=== PATIENT | male | born 1955 | race Caucasian/White ===

== ENCOUNTER → 2016-09-09 | Outpatient (CLI) | payer MEDICARE, OTHER ==
[~2016-09-09] MED LIST: ALLER-TEC10 MG PO; ASPIR 8181 MG PO; BENADRYL 25MG C25 MG PO; BRILINTA 90 MG90 MG PO; FISH OIL 1,0001 EAC3 PO; FLOVENT DISKUS50 MCG INH; IMDUR ER TAB 3030 MG PO; LOPRESSOR 50 MG50 MG PO; METFORMIN HCL500 MG PO; METHOCARBAMOL500 MG PO; NAPROSYN EC 50500 MG PO; NITROSTAT 0.40.4 MG SL; PLAVIX 75 MG TA75 MG PO; PROTONIX40 MG PO; PROVENTIL HFA 61 INH INH; SINGULAIR10 MG PO; ZESTRIL 40 MG T40 MG PO; ZOCOR20 MG PO
== END ==
LOC: HEART 5 09-02 08:45
DX: I25.10 Atherosclerotic heart disease of native coronary artery without angina pectoris (principal); I20.9 Angina pectoris, unspecified; E78.5 Hyperlipidemia, unspecified; I10 Essential (primary) hypertension
CPT/HCPCS: 78452; 93306; A9502

== ENCOUNTER 2016-10-14 07:11 | Inpatient (IN) | payer MEDICARE, OTHER ==
[~2016-10-14] VITALS: Ht 172.7 cm; Wt 108.5 kg
[2016-10-14 07:48] LABS: HEMOGLOBIN 13.6 gm/dl (14.0-17.5); RED BLOOD COUNT 4.59 M/UL (4.20-5.50); WHITE BLOOD COUNT 9.5 K/UL (4.5-11.0)
[2016-10-14 08:01] LABS: BUN/CREATININE RATIO 27 (0-10)
[2016-10-14] MEDS ORDERED: ALLER-TEC10 MG PO (08:28)
[2016-10-14] MEDS ORDERED: BENADRYL 25MG C25 MG PO (08:29)
[2016-10-14] MEDS ORDERED: ASPIR 8181 MG PO (08:29)
[2016-10-14] MEDS ORDERED: PLAVIX 75 MG TA75 MG PO (08:31)
[2016-10-14] MEDS ORDERED: FISH OIL 1,0001 EAC3 PO (08:32)
[2016-10-14] MEDS ORDERED: FLOVENT DISKUS50 MCG INH (08:33)
[2016-10-14] MEDS ORDERED: IMDUR ER TAB 3030 MG PO (08:34)
[2016-10-14] MEDS ORDERED: ZESTRIL 40 MG T40 MG PO (08:34)
[2016-10-14] MEDS ORDERED: METFORMIN HCL500 MG PO (08:35)
[2016-10-14] MEDS ORDERED: SINGULAIR10 MG PO (08:36)
[2016-10-14] MEDS ORDERED: LOPRESSOR 50 MG50 MG PO (08:36)
[2016-10-14] MEDS ORDERED: METHOCARBAMOL500 MG PO (08:36)
[2016-10-14] MEDS ORDERED: NAPROSYN EC 50500 MG PO (08:37)
[2016-10-14] MEDS ORDERED: PROTONIX40 MG PO (08:37)
[2016-10-14] MEDS ORDERED: PROVENTIL HFA 61 INH INH (08:38)
[2016-10-14] MEDS ORDERED: ZOCOR20 MG PO (08:38)
[2016-10-15 04:24] LABS: HEMOGLOBIN 13.9 gm/dl (14.0-17.5); RED BLOOD COUNT 4.67 M/UL (4.20-5.50)
[2016-10-15 04:27] LABS: WHITE BLOOD COUNT 13.7 K/UL (4.5-11.0)
[2016-10-15 04:46] LABS: BUN/CREATININE RATIO 20 (0-10)
[2016-10-15] MEDS ORDERED: BRILINTA 90 MG90 MG PO (14:47)
[2016-10-15] MEDS ORDERED: NITROSTAT 0.40.4 MG SL (15:02)
== END 2016-10-15 15:49 | disposition home or self-care (01) | DRG 247 ==
LOC: CATH 07:11 → PROG CARE 11:30
PROVIDERS: ADMIT Internal Medicine Interventional Cardiology
PROC: 027136Z Dilation of Coronary Artery, Two Arteries with Three Drug-eluting Intraluminal Devices, Percutaneous Approach (ICD-10-PCS; principal; 2016-10-14)
PROC: 4A023N7 Measurement of Cardiac Sampling and Pressure, Left Heart, Percutaneous Approach (ICD-10-PCS; 2016-10-14)
PROC: B2111ZZ Fluoroscopy of Multiple Coronary Arteries using Low Osmolar Contrast (ICD-10-PCS; 2016-10-14)
PROC: 4A033BC Measurement of Arterial Pressure, Coronary, Percutaneous Approach (ICD-10-PCS; 2016-10-14)
DX: T82.855A Stenosis of coronary artery stent, initial encounter (principal); I20.8 Other forms of angina pectoris; I10 Essential (primary) hypertension; E78.5 Hyperlipidemia, unspecified; Z88.5 Allergy status to narcotic agent; Z88.8 Allergy status to other drugs, medicaments and biological substances; Y84.0 Cardiac catheterization as the cause of abnormal reaction of the patient, or of later complication, without mention of misadventure at the time of the procedure
CPT/HCPCS: 36415; 80048; 80061; 82962; 85025; 85027; 85347; 85610; 85730; 93005; 93571; C1725; C1769; C1874; C1887; C9600; C9601; J0153; J0360; J0461; J0583; J1644; J2250; J3010; J7030; Q0163; Q9963

== ENCOUNTER → 2020-09-10 | Outpatient (CLI) | payer MEDICARE, OTHER | LOC: NM 08-06 09:00 → ECHO 08-06 09:00 → NM 08-06 10:00 | DX: I25.10 Atherosclerotic heart disease of native coronary artery without angina pectoris (principal); I11.9 Hypertensive heart disease without heart failure; I35.8 Other nonrheumatic aortic valve disorders | CPT/HCPCS: ECHO; 78452; 93017; 93306; A9502; J2785 ==

== ENCOUNTER → 2020-12-10 | Outpatient (CLI) | payer MEDICARE, OTHER ==
[~2020-12-10] MED LIST changes: +ATORVASTATIN CA40 MG PO; +OXYCODONE-ACET1 EACH PO; +PLAVIX75 MG PO
[2020-12-10 08:23] LABS: HEMOGLOBIN 12.5 gm/dl (14.0-17.5); RED BLOOD COUNT 4.43 M/UL (4.20-5.50); WHITE BLOOD COUNT 8.1 K/UL (4.5-11.0)
[2020-12-10 08:45] LABS: BUN/CREATININE RATIO 13 (0-10)
== END ==
LOC: CATH 07:09
PROVIDERS: Internal Medicine Cardiovascular Disease
DX: I25.118 Atherosclerotic heart disease of native coronary artery with other forms of angina pectoris (principal); I25.2 Old myocardial infarction; I10 Essential (primary) hypertension; E11.9 Type 2 diabetes mellitus without complications; Z95.5 Presence of coronary angioplasty implant and graft; Z88.5 Allergy status to narcotic agent; Z88.8 Allergy status to other drugs, medicaments and biological substances; Z79.82 Long term (current) use of aspirin; Z79.84 Long term (current) use of oral hypoglycemic drugs; Z79.891 Long term (current) use of opiate analgesic; Z79.899 Other long term (current) drug therapy
CPT/HCPCS: 80048; 85025; 85347; 85610; 92978; 93005; 99152; 99153; C1753; C1769; C1887; C1894; J1644; J2250; J3010; J7030; Q9967